=== PATIENT | male | born 1975 | race African-American/Black ===

== ENCOUNTER 2017-08-15 13:17 | Emergency (ER) | payer OTHER ==
[~2017-08-15] VITALS: Ht 191.8 cm; Wt 88.6 kg
[2017-08-15] MEDS ORDERED: FLONASE16 G1 BOTH NARES (15:39)
[2017-08-15] MEDS ORDERED: FIORICET 50-301 EAC1 PO (15:39)
[2017-08-15 15:54] VITALS: BP 132/87
== END 2017-08-15 15:55 | disposition home or self-care (01) ==
LOC: EME 13:17
DX: R09.81 Nasal congestion (principal); R51 Headache; F17.200 Nicotine dependence, unspecified, uncomplicated; Z86.69 Personal history of other diseases of the nervous system and sense organs
CPT/HCPCS: 99281; 99283